=== PATIENT | male | born 1960 | race Caucasian/White ===

== ENCOUNTER 2022-06-03 06:47 | Day surgery (SDC) | payer OTHER, SELFPAY ==
[2022-05-30 15:24] VITALS: BMI 31.9
--- NOTE | 2022-06-03 07:26 | P.HP_ITS ---
Same Day Surgery H&P Indication for Procedure/HPI DATE OF PROCEDURE: June 03, 2022 CHIEF COMPLAINT/INDICATIONFOR SURGICAL PROCEDURE: Family History PREOP DIAGNOSIS: Family History PLANNED PROCEDURE: Operation Date: 06/03/22 08:30 Proposed Procedures p Colonoscopy 64011,Z86.010,Z80.0(Not Applicable) - Jose Boothe MD Medications/Allergies* Home Medications Medication Instructions Recorded Confirmed Type amlodipine 10 mg tablet 10 mg PO DAILY 05/09/22 05/30/22 History cholecalciferol (vitamin D3) 10 10 mcg PO DAILY 05/09/22 05/30/22 History mcg (400 unit) capsule omeprazole 40 mg capsule,delayed 40 mg PO DAILY 05/09/22 05/30/22 History release Allergies/Adverse Reactions Allergy/AdvReac Type Severity Reaction Status Date / Time Penicillins Allergy Unknown Verified 05/30/22 15:25 Pertinent History/Comorbid Conditions* Medical History (Updated 05/09/22 @ 09:47 by Jose Boothe MD) History of colon polyps Family History (Updated 04/23/22 @ 13:33 by Narinder Bush) Cancer Mother Colon cancer Social History Smoking and tobacco status: current every day smoker Alcohol intake: never Pertinent Exam Findings alert, oriented x 3, clear to auscultation bilaterally, regular rate & rhythm, operative site marked and procedure specific exam findings Recommendations Surgery/Procedure today Coding Level of Care Code 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
[2022-06-03 07:30] VITALS: BP 177/100; PULSE 63; RESP 18; TEMP 36.1; O2SAT 99
[2022-06-03] MEDS: sodium chloride 0.9% 1,000 ML 30 ML IV (07:42)
--- NOTE | 2022-06-03 08:10 | ANES.PREANE2 ---
Pre-Anesthetic Assessment Height/Weight: Height 1.73 m Weight 95.254 kg Temp Pulse Resp BP Pulse Ox 97.0 F L 63 18 177/100 99 06/03/22 07:30 06/03/22 07:30 06/03/22 07:30 06/03/22 07:30 06/03/22 07:30 Preop Diagnosis: Fam hx and hx of polyps. Operation Date: 06/03/22 08:30 Proposed Procedures p Colonoscopy 05829,Z86.010,Z80.0(Not Applicable) - Jose Boothe MD Familial anesthetic complications: None Was Beta Narcisa taken within 24 hours: N/A Was Clonidine taken within 24 hours: N/A Last intake: Intake Last Liquid Date 06/02/22 Last Liquid Time 23:30 Last Solid Date 06/01/22 Last Solid Time 20:00 Social Tobacco and No alcohol Exam alert, oriented x 3, clear to auscultation bilaterally and regular rate & rhythm Airway Submandibular: within normal limits Cervical ROM: within normal limits Mallampati: Class II Dentition: full History/ROS No significant complaints Pulmonary None reported CV/HEM Hypertension METS > 4 None reported Hepatic None reported GI Gastroesophageal Reflux Disease Metabolic None reported Musc/skel None reported Neuropsych None reported Anesthetic Plan ASA status: 2 Anesthesia: Anesthesia Evaluation, General and MAC Other: I discussed with the patient risks, goals, and benefits of MAC and general anesthesia. We discussed spectrum of MAC anesthesia including conversion to general as well as possibility of recall of intraoperative stimuli including discomfort/pain. Patient agrees to proceed with MAC. Risk of > 500 ml blood loss (7ml/kg in children): No Medications/Allergies Home Medications Medication Instructions Recorded Confirmed Last Taken Type amlodipine 10 mg tablet 10 mg PO DAILY 05/09/22 05/30/22 06/01/22 History cholecalciferol (vitamin D3) 10 10 mcg PO DAILY 05/09/22 05/30/22 06/01/22 History mcg (400 unit) capsule omeprazole 40 mg capsule,delayed 40 mg PO DAILY 05/09/22 05/30/22 06/01/22 History release Allergies Allergy/AdvReac Type Severity Reaction Status Date / Time Penicillins Allergy Unknown Verified 05/30/22 15:25 Current Medications Generic Name Dose Route Start Last Admin Trade Name Freq PRN Reason Stop Dose Admin Sodium Chloride 1,000 mls @ 30 mls/hr 06/03/22 07:30 06/03/22 07:42 Sodium Chloride 0.9% IV 30 mls/hr .Q24H FRAN Administration PFSH Anesthesia Medical History History of colon polyps Family History Mother Cancer Colon cancer Social History Smoking and tobacco status: current every day smoker Alcohol intake: never Data Anesthesia Cardiac Studies: No Data to Display
[2022-06-03 09:21] VITALS: BP 118/77; PULSE 54; RESP 20; TEMP 36.1; O2SAT 100
--- NOTE | 2022-06-03 09:24 | ANE.PACU2 ---
Documented by User: Adriane Parson CRNA 06/03/22 09:24 Inpatient post-anesthesia follow up: Airway intact: Yes Vital signs: Temperature 97.0 F Pulse Rate 63 Respiratory Rate 18 Blood Pressure 177/100 Pulse Oximetry 99 Oxygen Delivery Me thod Oxygen Flow Rate Fraction of Inspir ed Oxygen Hydration adequate: Yes Nausea and vomiting: No Pain level: 1 Mental status: Baseline
[2022-06-03 09:33] VITALS: BP 112/63; PULSE 66; RESP 18; O2SAT 98
== END 2022-06-03 09:42 | disposition home or self-care (01) ==
PROVIDERS: PCP Nurse Practitioner; Visit Provider Internal Medicine
PROC: 0DJD8ZZ Inspection of Lower Intestinal Tract, Via Natural or Artificial Opening Endoscopic (ICD-10-PCS; CPT 45378; principal; 2022-06-03 08:30)
DX: Z86.010 Personal history of colon polyps (principal); Z80.0 Family history of malignant neoplasm of digestive organs; K63.5 Polyp of colon; I10 Essential (primary) hypertension; K21.9 Gastro-esophageal reflux disease without esophagitis; F17.200 Nicotine dependence, unspecified, uncomplicated
CPT/HCPCS: 45385; 88305; J2704; J7030

== ENCOUNTER → 2022-07-03 14:33 | Outpatient (BNVA) | payer OTHER, SELFPAY | PROVIDERS: PCP Nurse Practitioner; Visit Provider Internal Medicine Pulmonary Disease | DX: R91.8 Other nonspecific abnormal finding of lung field (principal); J44.9 Chronic obstructive pulmonary disease, unspecified; Z71.6 Tobacco abuse counseling; F17.210 Nicotine dependence, cigarettes, uncomplicated | CPT/HCPCS: 99204 ==

== ENCOUNTER → 2022-08-26 12:47 | Outpatient (BNVA) | payer OTHER, SELFPAY | PROVIDERS: PCP Nurse Practitioner; Visit Provider Internal Medicine Pulmonary Disease | DX: R91.8 Other nonspecific abnormal finding of lung field (principal); J44.9 Chronic obstructive pulmonary disease, unspecified; Z71.6 Tobacco abuse counseling; F17.210 Nicotine dependence, cigarettes, uncomplicated | CPT/HCPCS: 99214 ==

== ENCOUNTER → 2023-03-11 13:10 | Outpatient (BNVA) | payer OTHER, SELFPAY | PROVIDERS: PCP Nurse Practitioner; Visit Provider Internal Medicine Pulmonary Disease | DX: J44.9 Chronic obstructive pulmonary disease, unspecified (principal); R91.8 Other nonspecific abnormal finding of lung field; Z71.6 Tobacco abuse counseling; F17.210 Nicotine dependence, cigarettes, uncomplicated | CPT/HCPCS: 99214 ==

== ENCOUNTER → 2023-09-11 10:29 | Outpatient (BNVA) | payer OTHER, SELFPAY | PROVIDERS: PCP Nurse Practitioner; Visit Provider Internal Medicine Pulmonary Disease | DX: R91.8 Other nonspecific abnormal finding of lung field (principal); J44.9 Chronic obstructive pulmonary disease, unspecified; Z71.6 Tobacco abuse counseling; F17.210 Nicotine dependence, cigarettes, uncomplicated | CPT/HCPCS: 99214 ==

== ENCOUNTER 2023-10-22 06:34 | Outpatient (CLI) | payer OTHER, SELFPAY ==
[2023-10-22 07:10] VITALS: PULSE 60; RESP 18; O2SAT 98
[2023-10-22] MEDS: albuterol 2.5 mg/3 mL Neb INHALATION (07:10)
[2023-10-22 07:14] VITALS: PULSE 62
--- NOTE | 2023-10-22 08:30 | CT_ITS ---
WS: [id number] CT CHEST TECHNIQUE: Noncontrast CT of the chest with coronal and sagittal reformatted images. CLINICAL INFORMATION: check for multiple lung nodules COMPARISON: Outside CT 05/20/2022 DLP: 495.[address] scans at [facility] use at least one of these dose optimization techniques: automated e xposure control; mA and/or kV adjustment per patient size (includes targeted exams where dose is matc hed to clinical indication); or iterative reconstruction. FINDINGS: New lobulated LEFT lower lobe nodule measuring 7.3 mm. Recommend 6-month follow-up. No acute pulmonary infiltrates. Lungs are well aerated. Calcified granulomas RIGHT lower lobe. A few hazy small opacities in the RIGHT middle lobe/upper lobe this is unchanged in appearance since 022. Recommend 12-month follow-up. Largest hazy nodular opacity measures 5 mm. Dilated thoracic esophagus with air-fluid level suspicious for achalasia. This could be further evalu ated with esophagram. No significant hiatal hernia. Noncontrast aorta appears normal. No mediastinal or hilar lymphadenopathy. Coronary calcification. Adrenal glands are normal. Splenic granulomas. Noncontrast pancreas is normal. IMPRESSION: 1. New lobulated LEFT lower lobe nodule measuring 7.3 mm. Recommend 6-month follow-up chest CT 2. A few hazy clustered nodules in the RIGHT upper lobe/middle lobe along the fissure perihilar loca tion unchanged compared to 05/20/2022. 3. A few calcified granulomas. 4. No mediastinal or hilar lymphadenopathy. 5. Suspected achalasia thoracic esophagus. This can be further evaluated with esophagram.
== END 2023-10-22 06:35 | disposition home or self-care (01) ==
LOC: RT 06:35
PROVIDERS: PCP Nurse Practitioner; Visit Provider Internal Medicine Pulmonary Disease
DX: R91.8 Other nonspecific abnormal finding of lung field (principal)
CPT/HCPCS: 71250; 94060; 94618; 94726; 94729; J7613

== ENCOUNTER 2024-01-19 10:23 | Outpatient (CLI) | payer OTHER, SELFPAY ==
--- NOTE | 2024-01-19 11:00 | CT_ITS ---
WS: [id number] Exam: CT chest [place] [id number] Date/Time of Exam: 01/19/2024 10:28 AM Reason For Exam: lung nodule f/u DLP: 476.[address] scans at [facility] use at least one of these dose optimization techniques: automated e xposure control; mA and/or kV adjustment per patient size (includes targeted exams where dose is matc hed to clinical indication); or iterative reconstruction. Comparison 10/22/2023. The previously described 7.3 mm LEFT lower lobe pulmonary nodule is not identified and has apparently resolved. The lungs are bilaterally clear and fully expanded. No masses or nodules are demonstrated. The airway is patent. Normal thyroid lobes. No lymphadenopathy in the chest. Normal thoracic aorta. Again noted is fluid and food debris in the esophagus suggesting achalasia. No pericardial effusion o r pleural effusion. Coronary artery calcifications noted. No destructive bone lesions or chest wall d efects. CT sections of the upper abdomen demonstrate no significant abnormal finding. IMPRESSION: 1. Previously noted 7.3 mm LEFT lower lobe pulmonary nodule has resolved. No nodules or masses identi fied in either lung. 2. No lymphadenopathy in the chest. 3. Again noted are findings suspicious for achalasia.
== END 2024-01-19 10:24 | disposition home or self-care (01) ==
LOC: RAD 10:24
PROVIDERS: PCP Nurse Practitioner; Visit Provider Internal Medicine Pulmonary Disease
DX: R91.1 Solitary pulmonary nodule (principal)
CPT/HCPCS: 71250

== ENCOUNTER → 2024-01-29 09:12 | Outpatient (BNVA) | payer OTHER, SELFPAY | PROVIDERS: PCP Nurse Practitioner; Visit Provider Internal Medicine Pulmonary Disease | DX: R91.8 Other nonspecific abnormal finding of lung field (principal); J43.2 Centrilobular emphysema; Z71.6 Tobacco abuse counseling; F17.220 Nicotine dependence, chewing tobacco, uncomplicated | CPT/HCPCS: 99214 ==